=== PATIENT | male | born 1980 | race Two or more races ===

== ENCOUNTER 2020-01-29 15:08 | Emergency (ER) | payer MEDICAID, OTHER ==
[~2020-01-29] VITALS: Ht 182.9 cm; Wt 86.2 kg
[~2020-01-29 15:08] MED LIST: DOXY100T PO
[2020-01-29 15:10] VITALS: BP 122/69
--- NOTE | 2020-01-29 16:04 | PHYS DOC ---
Past History Past Medical History: Depression, HIV, Hepatitis, STD, Other Additional Past Medical Histor: "anger control issues" per pt Past Surgical History: No Surgical History Alcohol Use: Occasionally Adult General Chief Complaint Chief Complaint: MEDICATION REFILL HPI HPI Patient is a 39yo male presenting for med refills. States he has HIV and has all care previously managed in [place]. recently moved here ~1mo ago and has not established care with anyone in region as, "I don't know where to go". States he takes x2 different HIV meds daily and has been out for x1 week. Reports today wanting medication refills of these medications as, "I can feel my immune system going down". No other major complaints, no fever, known COVID 19 contact, CP, SHOB, AP, urinary symptoms. Patient does not know his last HIV counts, cannot recall CD4, is not knowledgable regarding his HIV treatment. States he wants med refills today but if given RX, "I can't fill it, I just need the meds here and I will go establish somewhere else" Review of Systems Review of Systems 14-point ROS performed. All other systems were reviewed and found to be within normal limits, except as documented in this note. Allergies Allergies Allergies Coded Allergies Type Severity Reaction Last Updated Verified Penicillins Allergy Mild Rash 01/29/20 Yes Physical Exam Physical Exam Constitutional: Well developed, well nourished, non-toxic appearance. [] HENT: Normocephalic, atraumatic, bilateral external ears normal, oropharynx moist, no oral exudates, nose normal. [] Eyes: PERRLA, EOMI, conjunctiva normal, no discharge. [] Neck: Normal range of motion, no tenderness, supple, no stridor. [] Cardiovascular:Heart rate regular per monitor Lungs & Thorax: No resp distres, no accessory muscle use, bilateral chest rise Abdomen: Bowel sounds normal, soft, no tenderness, no masses, no pulsatile masses. [] Skin: Warm, dry, no erythema, no rash. [] Back: No tenderness, no CVA tenderness. [] Extremities: No tenderness, no cyanosis, no clubbing, ROM intact, no edema. [] Neurologic: Alert and oriented X 3, normal motor function, normal sensory function, no focal deficits noted. [] Psychologic: Anxious affect, judgement normal, angry mood Current Patient Data Vital Signs Vital Signs Date Time Temp Pulse Resp B/P (MAP) Pulse Ox O2 Delivery O2 Flow Rate FiO2 01/29/20 15:10 98.4 89 18 122/69 (86) 98 Room Air EKG EKG [] Radiology/Procedures Radiology/Procedures [] Heart Score Risk Factors: Risk Factors: DM, Current or recent (<one month) smoker, HTN, HLP, family history of CAD, obesity. Risk Scores: Risk Factors: DM, Current or recent (<one month) smoker, HTN, HLP, family history of CAD, obesity. Course & Med Decision Making Course & Med Decision Making Patient's HIV meds not available at our location. I do not feel comfortable "mix and matching" HIV meds for patient today especially as he is not reliable historian and not knowledgeable regarding HIV treatment/levels/counts etc Patient angry and expecting to be dispensed medication for free prior to ER departure. States I am refusing care of him by not providing him desired treatment I disclosed he is asymptomatic, there is no indication for any ER diagnostic workup and/or intervention at this point, I advised him to follow-up with local PCP and gave him list. He is upset saying he does not have any money to do so I advised him to contact local health dept to discuss his case and they would be most knowledgeable regarding state grants etc that could help him with obtaining his HIV medications I also advised him to follow-up with local guidance center to establish care for his unknown mental health diagnoses Patient still angry and states he will be filing a complaint as we are refusing him care. I discussed SRP. Patient left without signing paperwork. Dragon Disclaimer Dragon Disclaimer This electronic medical record was generated, in whole or in part, using a voice recognition dictation system. Departure Departure: Impression: Primary Impression: Encounter for medication refill Disposition: 01 DC HOME SELF CARE/HOMELESS Condition: STABLE Referrals: PCP,NO (PCP) Additional Instructions: As discussed, please utilize the information below to contact the local [facility] regarding your immediate needs. They are located at: [facility] [address], [address], [place], [address] Phone number is [phone] You have also been given information regarding local primary care providers. Please browse the list, pick a provider of your liking and call them to schedule outpatient follow-up with them ANAID If any concerning signs or symptoms present prior to outpatient follow-up please do not hesitate to come back for repeat evaluation It was a pleasure to take care of you and I wish you the best going forward! MIKO CARPENTER DO Jan 29, 2020 16:04
== END 2020-01-29 16:22 | disposition home or self-care (01) ==
LOC: MERGE 15:08 → ER 15:08
DX: Z21 Asymptomatic human immunodeficiency virus [HIV] infection status (principal); Z76.0 Encounter for issue of repeat prescription; F32.9 Major depressive disorder, single episode, unspecified; Z88.0 Allergy status to penicillin
CPT/HCPCS: 99281